=== PATIENT | male | born 1990 | race Caucasian/White ===

== ENCOUNTER 2023-09-13 22:31 | Inpatient (IN) | payer MEDICAID ==
[~2023-09-13] VITALS: Ht 165.1 cm; Wt 81.6 kg
[2023-09-13 22:40] VITALS: BP 132/84; PULSE 92; RESP 19; TEMP 98; O2SAT 98
[2023-09-14] MEDS: NACL 0.9% 1,500 ML IV ONE (00:41)
[2023-09-14] MEDS: KETOROLAC 30 MG/ML VIAL IVP ONE (00:42)
[2023-09-14] MEDS ORDERED: VANCOMYCIN 1,000 MG VIAL ONE (00:43)
[2023-09-14 00:52] LABS: BASOPHILS # (AUTO) 0.1 K/uL (0.00-0.22); BASOPHILS % (AUTO) 0.6 % (0.0-2.0); EOSINOPHILS # (AUTO) 0.1 K/uL (0-0.4); EOSINOPHILS % (AUTO) 0.8 % (0.0-4.0); HEMOGLOBIN 14.6 g/dL (12.0-18.0); LYMPHOCYTES # (AUTO) 2.1 K/uL (2.0-11.5); LYMPHOCYTES % (AUTO) 12.4 % (20.5-51.1); MEAN CORPUSCULAR HEMOGLOBIN 30 pg (27-31); MEAN CORPUSCULAR HGB CONC 35 g/dL (33-37); MEAN CORPUSCULAR VOLUME 87.4 fL (80-94); MONOCYTES # (AUTO) 2.2 K/uL (0.8-1.0); MONOCYTES % (AUTO) 12.9 % (1.7-9.3); NEUTROPHILS # (AUTO) 12.4 K/uL (1.8-7.7); NEUTROPHILS % (AUTO) 73.3 % (42.2-75.2); PLATELET COUNT (AUTO) 210 K/uL (140-450); RED BLOOD CELL COUNT(AUTO) 4.81 MIL/uL (4.20-6.10); RED CELL DISTRIBUTION WIDTH 13.7 % (11.6-13.7); WHITE BLOOD COUNT (AUTO) 16.9 K/uL (4.8-10.8)
[2023-09-14] MEDS: VANCOMYCIN 1,000 MG in DEXTROSE 5% 250 ML IV ONE (00:53)
[2023-09-14 01:03] LABS: ANION GAP 11.1 (8-16); CALCIUM 8.8 mg/dL (8.5-10.1); CARBON DIOXIDE 27.6 mmol/L (21-32); POTASSIUM 3.7 mmol/L (3.5-5.1)
[2023-09-14 01:43] LABS: LACTIC ACID 0.9 mmol/L (0.4-2.0)
[2023-09-14] MEDS ORDERED: ACETAMINOPHEN 325 MG TAB PO PRN (06:45)
[2023-09-14] MEDS ORDERED: VANCOMYCIN PER PHARMACY MC PRN (06:50)
[2023-09-14 07:44] LABS: BASOPHILS # (AUTO) 0.5 K/uL (0.00-0.22); BASOPHILS % (AUTO) 3.4 % (0.0-2.0); EOSINOPHILS # (AUTO) 0.2 K/uL (0-0.4); EOSINOPHILS % (AUTO) 1.1 % (0.0-4.0); HEMATOCRIT 42.3 % (36-52); HEMOGLOBIN 14.2 g/dL (12.0-18.0); LYMPHOCYTES # (AUTO) 1.9 K/uL (2.0-11.5); LYMPHOCYTES % (AUTO) 11.9 % (20.5-51.1); MEAN CORPUSCULAR HEMOGLOBIN 30 pg (27-31); MEAN CORPUSCULAR HGB CONC 34 g/dL (33-37); MONOCYTES # (AUTO) 2.1 K/uL (0.8-1.0); MONOCYTES % (AUTO) 13.1 % (1.7-9.3); NEUTROPHILS # (AUTO) 11.3 K/uL (1.8-7.7); NEUTROPHILS % (AUTO) 70.5 % (42.2-75.2); PLATELET COUNT (AUTO) 223 K/uL (140-450); RED CELL DISTRIBUTION WIDTH 13.9 % (11.6-13.7)
[2023-09-14] MEDS: NACL 0.9% 1,000 ML IV SCH (08:00)
[2023-09-14 08:03] LABS: ALBUMIN 3.5 g/dL (3.4-5.0); ANION GAP 11.8 (8-16); CALCIUM 8.3 mg/dL (8.5-10.1); CARBON DIOXIDE 23.8 mmol/L (21-32); CREATININE 0.7 mg/dL (0.6-1.3); MAGNESIUM 2.1 mg/dL (1.8-2.4); PHOSPHORUS 2.7 mg/dL (2.5-4.9); POTASSIUM 3.6 mmol/L (3.5-5.1); TOTAL BILIRUBIN 0.7 mg/dL (0.0-1.0)
[2023-09-14] MEDS ORDERED: cefTRIAXone 1,000 MG VIAL ONE (08:07)
[2023-09-14] MEDS: ENOXAPARIN 40 MG/0.4 ML SYR SUBQ SCH (08:27)
[2023-09-14 09:00] VITALS: PULSE 79; RESP 16; RESP 18; TEMP 97.5; O2SAT 98; O2SAT 99
[2023-09-14] MEDS: VANCOMYCIN 1,000 MG in DEXTROSE 5% 250 ML IV SCH (10:22)
[2023-09-14 12:00] VITALS: BP 155/80; PULSE 79; RESP 18; TEMP 97.5; O2SAT 99
[2023-09-14 16:00] VITALS: BP 147/79; PULSE 82; RESP 18; TEMP 98.2; O2SAT 98
[2023-09-14] MEDS: MORPHINE SULFATE 2 MG/ML SYR IVP PRN (16:40)
[2023-09-14 17:28] LABS: APPEARANCE,URINE CLEAR (CLEAR); BILIRUBIN,URINE NEGATIVE (NEGATIVE); BLOOD, URINE NEGATIVE (NEGATIVE); COLOR,URINE YELLOW (YELLOW); LEUKOCYTE ESTERASE ,URINE NEGATIVE (NEGATIVE); NITRITE, URINE NEGATIVE (NEGATIVE); PH,URINE 6.5 (5.0-9.0); PROTEIN,URINE TRACE (NEGATIVE); UGLUCOSE NEGATIVE (NEGATIVE); UROBILINOGEN,URINE 0.2 EU/dL (0.2 - 1)
[2023-09-14 20:00] VITALS: BP 143/85; PULSE 87; RESP 18; TEMP 98.2; O2SAT 96
[2023-09-14] MEDS: HYDROcodone/APAP 5/325 MG 1 TAB TAB PO PRN (21:22)
[2023-09-15 04:00] VITALS: BP 132/79; PULSE 95; RESP 19; TEMP 97.2; O2SAT 97
[2023-09-15 06:50] LABS: BASOPHILS % (AUTO) 0.2 % (0.0-2.0); EOSINOPHILS # (AUTO) 0.2 K/uL (0-0.4); EOSINOPHILS % (AUTO) 1.1 % (0.0-4.0); HEMATOCRIT 42.6 % (36-52); HEMOGLOBIN 14.4 g/dL (12.0-18.0); LYMPHOCYTES % (AUTO) 12.1 % (20.5-51.1); MEAN CORPUSCULAR HEMOGLOBIN 30 pg (27-31); MEAN CORPUSCULAR HGB CONC 34 g/dL (33-37); MEAN CORPUSCULAR VOLUME 87.3 fL (80-94); MONOCYTES # (AUTO) 2.2 K/uL (0.8-1.0); MONOCYTES % (AUTO) 13.3 % (1.7-9.3); NEUTROPHILS # (AUTO) 12.3 K/uL (1.8-7.7); NEUTROPHILS % (AUTO) 73.3 % (42.2-75.2); PLATELET COUNT (AUTO) 210 K/uL (140-450); RED BLOOD CELL COUNT(AUTO) 4.88 MIL/uL (4.20-6.10); RED CELL DISTRIBUTION WIDTH 13.6 % (11.6-13.7); WHITE BLOOD COUNT (AUTO) 16.8 K/uL (4.8-10.8)
[2023-09-15 07:18] LABS: ANION GAP 15.4 (8-16); CALCIUM 8.6 mg/dL (8.5-10.1); CARBON DIOXIDE 24.3 mmol/L (21-32); CREATININE 0.7 mg/dL (0.6-1.3); POTASSIUM 3.7 mmol/L (3.5-5.1)
[2023-09-15 08:00] VITALS: BP 108/55; PULSE 69; PULSE 74; RESP 17; RESP 18; TEMP 97.8; TEMP 98.2; O2SAT 96; O2SAT 98
[2023-09-15 16:00] VITALS: BP 124/53; PULSE 96; RESP 18; TEMP 98; O2SAT 100
[2023-09-15] MEDS: VANCOMYCIN 1.25GM PREMIX 250 ML IV SCH (18:21)
[2023-09-15 20:00] VITALS: BP 135/82; PULSE 97; RESP 16; RESP 17; TEMP 98.5; O2SAT 96; O2SAT 99
[2023-09-15] MEDS: HYDROmorphone 1 MG/ML AMP IVP ONE ×2 (21:34→21:37)
[2023-09-16 04:00] VITALS: BP 116/67; PULSE 69; RESP 18; TEMP 97.9; O2SAT 98
[2023-09-16] MEDS: HYDROmorphone 1 MG/ML AMP IVP PRN ×2 (04:16→20:00)
[2023-09-16 06:30] LABS: BASOPHILS % (AUTO) 0.5 % (0.0-2.0); EOSINOPHILS # (AUTO) 0.4 K/uL (0-0.4); EOSINOPHILS % (AUTO) 3.9 % (0.0-4.0); HEMATOCRIT 40.4 % (36-52); HEMOGLOBIN 13.8 g/dL (12.0-18.0); LYMPHOCYTES # (AUTO) 1.9 K/uL (2.0-11.5); LYMPHOCYTES % (AUTO) 19.3 % (20.5-51.1); MEAN CORPUSCULAR HEMOGLOBIN 30 pg (27-31); MEAN CORPUSCULAR HGB CONC 34 g/dL (33-37); MEAN CORPUSCULAR VOLUME 87.9 fL (80-94); MONOCYTES # (AUTO) 1.6 K/uL (0.8-1.0); MONOCYTES % (AUTO) 16.6 % (1.7-9.3); NEUTROPHILS # (AUTO) 5.9 K/uL (1.8-7.7); NEUTROPHILS % (AUTO) 59.7 % (42.2-75.2); PLATELET COUNT (AUTO) 215 K/uL (140-450); RED CELL DISTRIBUTION WIDTH 13.6 % (11.6-13.7); WHITE BLOOD COUNT (AUTO) 9.8 K/uL (4.8-10.8)
[2023-09-16 06:38] LABS: ANION GAP 10.8 (8-16); CALCIUM 8.5 mg/dL (8.5-10.1); CARBON DIOXIDE 28.4 mmol/L (21-32); CREATININE 0.8 mg/dL (0.6-1.3); POTASSIUM 4.2 mmol/L (3.5-5.1)
[2023-09-16 08:00] VITALS: BP 120/66; PULSE 68; RESP 16; RESP 18; TEMP 98.2; O2SAT 97; O2SAT 99
[2023-09-16 12:00] VITALS: BP 120/66; PULSE 68; RESP 18; TEMP 98.2; O2SAT 97
[2023-09-16] MEDS ORDERED: VANCOMYCIN PER PHARMACY MC PRN (12:55)
[2023-09-16] MEDS ORDERED: LIDOCAINE 2% 1000 MG/50 ML VIAL INJ SCH (15:15)
[2023-09-16] MEDS ORDERED: LIDOCAINE/EPI 1% 1:100000 20 ML VIAL INJ SCH (15:15)
[2023-09-16 16:00] VITALS: BP 124/62; PULSE 70; RESP 18; TEMP 98; O2SAT 98
[2023-09-16 20:00] VITALS: BP 122/77; PULSE 81; RESP 18; TEMP 97.7; TEMP 97.8; O2SAT 95; O2SAT 98
[2023-09-17] VITALS: BP 122/77; PULSE 81; RESP 18; TEMP 97.7; O2SAT 98
[2023-09-17 04:00] VITALS: BP 133/76; PULSE 76; RESP 18; TEMP 97.7; O2SAT 98
[2023-09-17 06:57] LABS: BASOPHILS # (AUTO) 0.1 K/uL (0.00-0.22); BASOPHILS % (AUTO) 1.5 % (0.0-2.0); EOSINOPHILS # (AUTO) 0.5 K/uL (0-0.4); EOSINOPHILS % (AUTO) 9.3 % (0.0-4.0); HEMATOCRIT 39.7 % (36-52); HEMOGLOBIN 13.5 g/dL (12.0-18.0); LYMPHOCYTES # (AUTO) 1.9 K/uL (2.0-11.5); LYMPHOCYTES % (AUTO) 33.1 % (20.5-51.1); MEAN CORPUSCULAR HEMOGLOBIN 30 pg (27-31); MEAN CORPUSCULAR HGB CONC 34 g/dL (33-37); MEAN CORPUSCULAR VOLUME 87.8 fL (80-94); MONOCYTES # (AUTO) 1.2 K/uL (0.8-1.0); MONOCYTES % (AUTO) 20.7 % (1.7-9.3); NEUTROPHILS % (AUTO) 35.4 % (42.2-75.2); PLATELET COUNT (AUTO) 233 K/uL (140-450); RED BLOOD CELL COUNT(AUTO) 4.52 MIL/uL (4.20-6.10); RED CELL DISTRIBUTION WIDTH 13.2 % (11.6-13.7); WHITE BLOOD COUNT (AUTO) 5.6 K/uL (4.8-10.8)
[2023-09-17 07:07] LABS: ALBUMIN 2.9 g/dL (3.4-5.0); ANION GAP 8.7 (8-16); CALCIUM 8.4 mg/dL (8.5-10.1); CARBON DIOXIDE 31.4 mmol/L (21-32); CREATININE 0.8 mg/dL (0.6-1.3); POTASSIUM 4.1 mmol/L (3.5-5.1); TOTAL BILIRUBIN 0.1 mg/dL (0.0-1.0); TOTAL PROTEIN, SERUM 6.6 g/dL (6.4-8.2)
[2023-09-17 08:00] VITALS: BP 128/76; PULSE 78; PULSE 79; RESP 18; TEMP 98.1; O2SAT 98
[2023-09-17] MEDS: PANTOPRAZOLE 40 MG INJ VIAL IVP SCH (08:15)
[2023-09-17 12:00] VITALS: BP 128/76; PULSE 79; RESP 18; TEMP 98.1; O2SAT 98
[2023-09-17] MEDS ORDERED: AMOX-999 PO (12:43)
[2023-09-17] MEDS ORDERED: SULF-954 PO (12:43)
[2023-09-17 13:09] VITALS: BP 120/80; PULSE 72; RESP 18; TEMP 96.8
== END 2023-09-17 14:30 | disposition home or self-care (01) | DRG 720 ==
LOC: MED 22:31 → MMU 09-14 07:10 → MTU 09-14 08:10
PROVIDERS: ADMIT Student in an Organized Health Care Education/Training Program; ATTEND Student in an Organized Health Care Education/Training Program
PROC: 0H91XZZ Drainage of Face Skin, External Approach (ICD-10-PCS; principal; 2023-09-16)
DX: A41.9 Sepsis, unspecified organism (principal); L03.221 Cellulitis of neck; L03.211 Cellulitis of face; M27.2 Inflammatory conditions of jaws; L02.01 Cutaneous abscess of face
CPT/HCPCS: 36415; 70490; 70491; 71045; 80048; 80053; 80202; 81003; 83605; 83735; 84100; 85025; 87040; 87081; 96365; 96375; 99285; J0696; J1170; J1650; J1885; J2001; J2270; J2470; J3370; J3372; J7060; Q0092; Q9967